=== PATIENT | female | born 1990 | race Caucasian/White ===

== ENCOUNTER 2020-09-24 10:20 | Outpatient (CLI) | payer OTHER ==
--- NOTE | 2020-09-26 10:44 | MRI Report ---
PROCEDURE: Knee LT W/O INDICATIONS: LT KNEE PAIN TECHNIQUE: Noncontrast sagittal PD fast spin echo and T2 fast spin echo with fat saturation, sagittal 3-D gradie nt sequence with fat saturation; coronal T1 spin echo and PD fast spin echo with fat saturation, and axial PD fast spin echo with fat saturation through the knee. COMPARISON: None. FINDINGS: Image quality: Excellent. Menisci: There is a small radial tear along the free edge in the posterior horn of the lateral menis cus. The medial meniscus and meniscal root ligaments appear intact. Cruciate ligaments: The anterior and posterior cruciate ligaments appear intact. Medial structures: The medial collateral ligament appears intact. The semimembranosus tendon insert ions appear intact. Visualized portions of the pes anserinus tendons appear normal. No abnormal bur carlos fluid. Lateral structures: The fibular collateral ligament and biceps femoris tendon appear intact. The po pliteal tendon and the meniscofemoral ligaments appear intact. Anterior structures: The quadriceps and patellar tendons appear intact. There is moderate lateral t ilt of the patella. 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 No edema in the infrapatellar fat pad. Bones and cartilage: No bone marrow contusions or fractures. The cartilage of the medial and latera l femorotibial compartments, as well as the patellofemoral compartment, appears grossly preserved in thickness. There is heterogeneous signal within the cartilage along the lateral patellar facet withou t discrete chondral defect. Joint space: There is physiologic knee joint fluid. No Latham?s cyst. Normal appearing synovial pli are incidentally noted. IMPRESSION: 1. Small radial tear along the free edge of the posterior horn of the lateral meniscus. 2. 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 Mild heterogen eous cartilage signal demonstrated along the lateral patellar facet without a discrete chondral defec t. Reviewed by: Pascual Albright MD on 09/26/2020 10:43 AM PST Approved by: Pascual Albright MD on 09/26/2020 10:43 AM PST Station ID: [id number]
== END 2020-09-24 10:21 | disposition home or self-care (01) ==
LOC: DI 10:20
PROVIDERS: ATTEND Family Medicine
DX: S83.282A Other tear of lateral meniscus, current injury, left knee, initial encounter (principal)

== ENCOUNTER 2021-03-28 08:00 | Outpatient (CLI) | payer OTHER | END 2021-03-28 23:59 | disposition home or self-care (01) | LOC: LAB.N 08:00 | PROVIDERS: ATTEND Nurse Practitioner | DX: N39.0 Urinary tract infection, site not specified (principal) | CPT/HCPCS: 87077; 87086; 87181 ==